=== PATIENT | male | born 1985 | race African-American/Black ===

== ENCOUNTER 2024-07-14 12:16 | Emergency (ER) | payer MEDICAID ==
[~2024-07-14] VITALS: Ht 185.4 cm; Wt 110.0 kg
[2024-07-14 12:19] VITALS: O2SAT 100
[2024-07-14 16:27] LABS: BASOPHILS % 0.2 % (0.0-2.0); DIFFERENTIAL COMMENT 0; HEMATOCRIT. 38.8 % (42.0-52.0); HEMOGLOBIN. 12.6 g/dL (14.0-18.0); LYMPHOCYTES % 13.9 % (20.0-50.0); MEAN CORPUSCULAR HEMOGLOBIN 25.8 pg (28.0-32.0); MEAN CORPUSCULAR HGB CONC 32.4 g/dL (31.0-37.0); MEAN CORPUSCULAR VOLUME 79.9 fL (80.0-94.0); MEAN PLATELET VOLUME 7.8 fl (7.4-10.4); MONOCYTES % 9.6 % (2.0-8.0); NEUTROPHILS % 76.3 % (40.0-76.0); PLATELET 243 x1000/uL (130-400); RED BLOOD CELL COUNT 4.86 mill/uL (4.7-6.1); RED CELL DISTRIBUTION WIDTH 14.6 % (11.6-14.6); WHITE BLOOD COUNT 12.2 x1000/uL (4.5-11.0)
[2024-07-14 16:40] LABS: CHLORIDE 102 mEq/L (98-107); POTASSIUM 3.5 mEq/L (3.5-5.1); SODIUM 139 mEq/L (136-145)
[2024-07-14 16:41] LABS: CALCIUM 9.5 mg/dL (8.7-10.4); CARBON DIOXIDE 26 mEq/L (21-32)
[2024-07-14 16:46] LABS: CREATININE 1.3 mg/dL (0.6-1.3); GLUCOSE 97 mg/dL (70-105); UREA NITROGEN BLOOD 12 mg/dL (9-23)
[2024-07-14 16:47] LABS: ETHANOL BLOOD < 10 mg/dL (<10)
[2024-07-14 16:48] LABS: ACETAMINOPHEN < 2 ug/mL (10-30)
[2024-07-14 22:59] LABS: CLARITY URINE TURBID (CLEAR); COLOR URINE DARK YELLOW (YELLOW); GLUCOSE URINE NEGATIVE (NEGATIVE); KETONES URINE 2+ (NEGATIVE); LEUKOCYTE ESTERASE URINE NEGATIVE (NEGATIVE); NITRITE URINE NEGATIVE (NEGATIVE); OCCULT BLOOD URINE NEGATIVE (NEGATIVE); PH URINE 5.5 (4.5-8.0); PROTEIN URINE 2+ (NEGATIVE)
[2024-07-14 23:01] LABS: *AMPHETAMINES SCREEN URINE PRESUMPTIVE POSITIVE (NEGATIVE)
[2024-07-14 23:02] LABS: *BARBITURATES SCREEN URINE NEGATIVE (NEGATIVE); *BENZODIAZEPINES SCREEN URINE NEGATIVE (NEGATIVE); *COCAINE SCREEN URINE NEGATIVE (NEGATIVE); CANNABINOID URINE SCREEN PRESUMPTIVE POSITIVE (NEGATIVE); ECSTASY MDMA SCREEN URINE CONF.TEST INDICATED (NEGATIVE); METHADONE URINE SCREEN NEGATIVE (NEGATIVE); OPIATES URINE SCREEN NEGATIVE (NEGATIVE); PHENCYCLIDINE URINE SCREEN NEGATIVE (NEGATIVE)
[2024-07-14 23:11] LABS: AMORPHOUS SEDIMENT URINE 1+ /lpf; BACTERIA URINE TRACE; RBC URINE NONE SEEN /hpf (0-2); SQUAMOUS EPITHELIAL CELL URINE FEW /lpf (RARE/1+); WBC URINE 0-2 /hpf (0-2)
[2024-07-15] MEDS: LORAZEPAM 1MG TABLET PO ONE (02:17)
[2024-07-15 06:00] VITALS: TEMP 36.9
[2024-07-15 09:14] VITALS: BP 148/100; PULSE 114; RESP 18; O2SAT 100
== END 2024-07-15 12:32 | disposition home or self-care (01) ==
LOC: ER 12:16
DX: F15.90 Other stimulant use, unspecified, uncomplicated (principal); F32.A Depression, unspecified; F20.9 Schizophrenia, unspecified; Z59.00 Homelessness unspecified; Z79.899 Other long term (current) drug therapy; Z20.822 Contact with and (suspected) exposure to COVID-19; Z88.0 Allergy status to penicillin
CPT/HCPCS: 80305; 80048; 81003; 80307; 80329; 80320; 85025; 36415; 93005; 99285; 87426; Z7610 ×2; A4606; G0480

== ENCOUNTER 2024-11-02 05:25 | Emergency (ER) | payer MEDICAID, OTHER ==
[~2024-11-02] VITALS: Ht 180.3 cm; Wt 82.0 kg
[2024-11-02 05:48] VITALS: O2SAT 97
[2024-11-02] MEDS: HALOPERIDOL LACTATE 5MG/ML VIAL IM ONE (05:48)
[2024-11-02] MEDS: MIDAZOLAM HCL 2 MG/2 ML VIAL IM ONE (05:48)
[2024-11-02 06:04] LABS: BASOPHILS % 0.4 % (0.0-2.0); EOSINOPHILS % 0.0 % (0.0-5.0); HEMATOCRIT. 39.0 % (42.0-52.0); HEMOGLOBIN. 12.5 g/dL (14.0-18.0); LYMPHOCYTES % 10.1 % (20.0-50.0); MEAN PLATELET VOLUME 7.0 fl (7.4-10.4); MONOCYTES % 9.1 % (2.0-8.0); NEUTROPHILS % 80.4 % (40.0-76.0); PLATELET 279 x1000/uL (130-400); RED BLOOD CELL COUNT 4.82 mill/uL (4.7-6.1); RED CELL DISTRIBUTION WIDTH 15.4 % (11.6-14.6)
[2024-11-02] MEDS: LIDOCAINE HCL 1% 20ML VIAL INFIL NR (06:14)
[2024-11-02] MEDS ORDERED: LIDOCAINE HCL 1% 20ML VIAL INFIL ONE (06:15)
[2024-11-02 06:17] LABS: CREATININE 1.5 mg/dL (0.6-1.3); UREA NITROGEN BLOOD 21 mg/dL (9-23)
[2024-11-02 06:18] LABS: ETHANOL BLOOD 149 mg/dL (<10)
[2024-11-02 06:19] LABS: ASPARTATE AMINOTRANSFERASE 66 IU/L (<34); BILIRUBIN DIRECT 0.3 mg/dL (<=3.0); BILIRUBIN TOTAL 1.1 mg/dL (0.1-1.0); PROTEIN TOTAL 7.5 g/dL (6.0-8.3)
[2024-11-02] MEDS: TETANUS, DIPHTHERIA, PERTUSSIS VAC/PF 0.5ML (>10YR OLD) IM ONE (07:06)
[2024-11-02] MEDS ORDERED: LACTATED RINGERS 1,000 ML IV SCH (07:30)
[2024-11-02 09:30] VITALS: BP 129/80; PULSE 85; RESP 18; TEMP 36.7; O2SAT 98
[2024-11-02] MEDS ORDERED: MAGNESIUM/ALUMINUM HYDROXIDE/SIMETHICONE 30ML UDC PO PRN (09:45)
[2024-11-02] MEDS ORDERED: CLONIDINE 0.1MG TABLET PO PRN (09:45)
[2024-11-02] MEDS ORDERED: ONDANSETRON HCL 4MG/2ML INJ IV PRN (09:45)
[2024-11-02] MEDS ORDERED: LORAZEPAM 2MG/ML UD SYRINGE IV PRN (09:45)
[2024-11-02] MEDS ORDERED: DOCUSATE SODIUM 100MG CAPSULE PO PRN (09:45)
[2024-11-02] MEDS ORDERED: LACTATED RINGERS 1,000 ML IV ONE (09:45)
[2024-11-02] MEDS ORDERED: IPRATROPIUM/ALBUTEROL 0.5-3(2.5)MG/3ML NEB HHN PRN (09:45)
[2024-11-02] MEDS ORDERED: GUAIFENESIN 200MG/10ML SUGAR FREE UDC PO PRN (09:45)
[2024-11-02] MEDS ORDERED: ACETAMINOPHEN 325MG TABLET PO PRN ×2 (09:45)
[2024-11-02] MEDS ORDERED: ENOXAPARIN 40MG/0.4ML SYR SUBCUT SCH (10:00)
[2024-11-02] MEDS ORDERED: FOLIC ACID 1 MG, THIAMINE HCL 100 MG, MVI, ADULT NO.1 10 ML in DEXTROSE 5% WATER 1,000 ML IV ONE (10:30)
[2024-11-02] MEDS ORDERED: DEXT 5% WATER 500 ML IV SCH (11:00)
[2024-11-02 11:23] LABS: PHOSPHORUS 4.4 mg/dL (2.5-4.9)
[2024-11-02] MEDS ORDERED: CHLORDIAZEPOXIDE 25MG CAPSULE PO SCH (18:00)
[2024-11-02] MEDS ORDERED: TRAZODONE HCL 50MG TABLET PO SCH (21:00)
[2024-11-03] MEDS ORDERED: MULTIVITAMINS,THER W-MINERALS TABLET PO SCH (09:00)
[2024-11-03] MEDS ORDERED: PANTOPRAZOLE SODIUM 40 MG/VIAL IV SCH (09:00)
[2024-11-03] MEDS ORDERED: FOLIC ACID 1MG TABLET PO SCH (09:00)
[2024-11-03] MEDS ORDERED: FERROUS SULFATE 325MG TABLET PO SCH (09:00)
[2024-11-03] MEDS ORDERED: THIAMINE HCL 100MG TABLET PO SCH (09:00)
== END 2024-11-02 11:21 | disposition left against medical advice (07) ==
LOC: ER 05:25 → EDBEDREQ 08:48 → EDBEDREQTM 08:48 → ER 11:21 → CMPBEDREQ 13:24
DX: S02.2XXA Fracture of nasal bones, initial encounter for closed fracture (principal); I10 Essential (primary) hypertension; F19.90 Other psychoactive substance use, unspecified, uncomplicated; M62.82 Rhabdomyolysis; Z88.0 Allergy status to penicillin; Z79.899 Other long term (current) drug therapy; X58.XXXA Exposure to other specified factors, initial encounter; Y93.89 Activity, other specified; Y92.89 Other specified places as the place of occurrence of the external cause; Y99.8 Other external cause status
CPT/HCPCS: 80076; 80048; 80307; 80329; 80320; 82550; 83735; 84100; 85025; 36415; 70450; 70486; 72125; 90715; 93005; 10120; 90471; 96372; 99291; J1630; J2003; J2250; Z7610 ×4; A4606; J3411; J3490; J7070; G0480